=== PATIENT | male | born 1960 | race Caucasian/White ===

== ENCOUNTER 2019-08-08 06:08 | Day surgery (SDC) | payer OTHER ==
[2019-08-04 12:09] VITALS: BMI 29.0
[2019-08-08] MEDS ORDERED: Bacitracin Zinc Ointment 30 gm TUBE ONE (06:37)
[2019-08-08] MEDS ORDERED: Bupivacaine PF 0.5% 30 ML VIAL ONE (06:37)
[2019-08-08] MEDS ORDERED: Lidocaine 2% PF 5 ML VIAL ONE (06:37)
[2019-08-08] MEDS ORDERED: Levofloxacin 500 mg/D5W 100 ml Premix Bag ONE (06:48)
[2019-08-08] MEDS ORDERED: Fentanyl 100 MCG/2 ML VIAL ONE (07:11)
[2019-08-08] MEDS ORDERED: Midazolam HCl 2 mg/2 ml Vial ONE (07:23)
[2019-08-08] MEDS ORDERED: Rocuronium Bromide 10 MG/ML (10ML VIAL) ONE (10:05)
[2019-08-08] MEDS ORDERED: Lidocaine 1% PF 5 ML VIAL ONE (10:05)
[2019-08-08] MEDS ORDERED: Dexamethasone 20 MG/5 ML VIAL ONE (10:05)
[2019-08-08] MEDS ORDERED: EPHEDRINE 25 MG/5 ML SYRINGE ONE (10:05)
[2019-08-08] MEDS ORDERED: Ondansetron PF 4 MG/2 ML Vial ONE (10:05)
[2019-08-08] MEDS ORDERED: Glycopyrrolate 0.2 MG/ML 5 ML SYRINGE ONE (10:05)
[2019-08-08] MEDS ORDERED: PHENYLEPHRINE-NS 100 MCG/ML 10 ML SYRINGE ONE (10:05)
[2019-08-08] MEDS ORDERED: PROPOFOL 200 MG/20 ML VIAL ONE (10:05)
[2019-08-08] MEDS ORDERED: Ketorolac Tromethamine 30 MG/ML VIAL ONE (10:05)
--- NOTE | 2019-08-11 08:55 | OP ---
DATE OF PROCEDURE: 08/08/2019 ASSISTANTS: None. FACILITY: [place], [place]. PREOPERATIVE DIAGNOSIS: Cyst, right foot, medial to right Achilles tendon at its insertion. POSTOPERATIVE DIAGNOSIS: Cyst, right foot, medial to right Achilles tendon at its insertion. PROCEDURE PERFORMED: Excision of cyst, right foot. ANESTHESIA: General with local. FLUIDS: P.r.n. Anesthesia. ESTIMATED BLOOD LOSS: Less than 10 mL. DESCRIPTION OF PROCEDURE: The patient was brought to the OR and placed in a prone position. The right foot was prepped and draped in the usual sterile manner. A tourniquet was applied, but not used during the procedure. Once the patient was anesthetized, approximately 5 mL of the 2% plain lidocaine and 0.5% plain Marcaine mixed 50:50 was injected in vicinity of the 0.5-cm cystic lesion. A marking pen was used to delineate a 3-cm incision directly over the cystic lesion. A #15 blade was used for the initial incision. Canela tenotomy scissors were used to dissect the cyst free of the surrounding subcutaneous tissue. A small stalk was noted, which extended to the anterior surface of the Achilles tendon. The stalk was followed back and a loop of 3-0 Vicryl was placed around the stalk. Dissection was continued around the cyst. The cyst was then removed from the wound site and sent to pathology for evaluation. The wound was then closed with 3-0 Prolene using a vertical mattress technique. This was dressed with triple antibiotics, fluffs, Kerlix, and Norberto wrap. The patient tolerated the procedure well, left the operating room with all vital signs stable and intact. Postoperatively, the patient was placed on cephalexin 500 mg 1 tablet p.o. b.i.d. and tramadol 50 mg 1 tablet p.o. q.6 h. for pain control. A postoperative shoe was dispensed. The patient was discharged with postoperative instructions. He will follow up in 1 week. Job ID: [id number]
== END 2019-08-08 10:50 | disposition home or self-care (01) ==
LOC: SDC 06:08
PROVIDERS: ATTEND Podiatrist
PROC: 0HBMXZZ Excision of Right Foot Skin, External Approach (ICD-10-PCS; principal; 2019-08-08)
DX: L72.0 Epidermal cyst (principal); Z79.899 Other long term (current) drug therapy; Z98.890 Other specified postprocedural states; Z88.0 Allergy status to penicillin
CPT/HCPCS: 87070; 87205; 88304; J1100; J1885; J1956; J2001; J2250; J2405; J2704; J3010; S0020